=== PATIENT | female | born 1985 | race African-American/Black ===

== ENCOUNTER 2019-11-01 17:32 | Emergency (ER) | payer OTHER ==
[~2019-11-01] VITALS: Ht 162.6 cm; Wt 77.6 kg
[2019-11-01] MEDS ORDERED: LEXAPRO 10 MG T10 M2 PO (18:35)
[2019-11-01] MEDS ORDERED: ADIPEX-P37.5 MG PO (18:35)
[2019-11-01 20:17] VITALS: BP 115/58
== END 2019-11-01 20:10 | disposition home or self-care (01) ==
LOC: ER 17:32
DX: J10.1 Influenza due to other identified influenza virus with other respiratory manifestations (principal); J45.909 Unspecified asthma, uncomplicated; R11.2 Nausea with vomiting, unspecified; Z79.899 Other long term (current) drug therapy

== ENCOUNTER 2020-03-03 20:11 | Emergency (ER) | payer OTHER ==
[~2020-03-03] VITALS: Ht 162.6 cm; Wt 81.7 kg
[~2020-03-03 20:11] MED LIST: ADIPEX-P37.5 MG PO; LEXAPRO 10 MG T10 M2 PO
[2020-03-03 20:18] VITALS: BP 124/79
== END 2020-03-03 21:35 | disposition home or self-care (01) ==
LOC: ER 20:11
DX: S80.11XA Contusion of right lower leg, initial encounter (principal); Z79.899 Other long term (current) drug therapy; V49.59XA Passenger injured in collision with other motor vehicles in traffic accident, initial encounter; Y93.89 Activity, other specified; Y92.89 Other specified places as the place of occurrence of the external cause; Y99.8 Other external cause status